=== PATIENT | female | born 1935 | race Caucasian/White ===

== ENCOUNTER 2020-10-05 14:03 | Inpatient (IN) ==
[2020-10-05] MEDS: DilTIAZem CD (24hr) 120 MG CAP.ER.24H PO SCH (22:14)
[2020-10-05] MEDS: Apixaban 5 MG TABLET PO SCH (22:14)
[2020-10-05] MEDS: *HR* OxyCODONE/APAP 5/325 TABLET PO PRN (22:18)
[2020-10-06 06:00] LABS: Basophils # 0.1 K/mcL (0.0-0.2); Basophils % 0.9 %; Eosinophils # 0.2 K/mcL (0.0-0.6); Eosinophils % 1.7 %; Hematocrit 24.4 % (35.3-44.9); Hemoglobin 7.8 g/dL (11.5-15.4); Immature Granulocytes % 1.9 % (0-4); Lymphocytes # 2.7 K/mcL (0.6-4.6); Lymphocytes % 26.9 %; Mean Corpuscular Hemoglobin 28.9 pg (28.0-33.3); Mean Corpuscular Volume 90.4 fL (83.0-100.0); Mean Platelet Volume 13.7 fL (9.4-12.4); Monocytes # 0.9 K/mcL (0.0-1.3); Monocytes % 9.3 %; Platelet Count 113 K/mcL (140-400); Red Cell Distribution Width 13.4 % (11.5-14.5); Segmented Neutrophils % 59.3 %; White Blood Count 10.1 K/mcL (4.3-11.1)
[2020-10-06 06:21] LABS: BUN/Creatinine Ratio 27 (6-26); Blood Urea Nitrogen 20 mg/dL (8-23); Calcium 8.5 mg/dL (8.6-10.3); Carbon Dioxide 27 mEq/L (23-29); Chloride 102 mEq/L (98-107); Glucose 83 mg/dL (70-105); Osmolality,Calculated 288 (280-300); Potassium 4.6 mEq/L (3.5-5.1); Sodium 138 mEq/L (136-145); eGFR For African Americans > 60 (> 60); eGFR For Non-African Americans > 60 (> 60)
[2020-10-06] MEDS: Sennosides/Docusate Sodium TABLET PO SCH ×2 (09:00→21:33)
[2020-10-06] MEDS: Cholecalciferol (D-3) 1,000 UNIT (25MCG) TABLET PO SCH (09:00)
[2020-10-06] MEDS: DilTIAZem CD (24hr) 120 MG CAP.ER.24H PO SCH ×2 (09:00→21:33)
[2020-10-06] MEDS: Apixaban 5 MG TABLET PO SCH (09:01)
[2020-10-06] MEDS: Fluticasone Propionate Nasal 50 MCG/SPRAY BOTTLE NS SCH (09:02)
[2020-10-06] MEDS: *HR* OxyCODONE/APAP 5/325 TABLET PO PRN ×2 (12:07→18:07)
[2020-10-06] MEDS ORDERED: MOM Conc 10 ML UD.LIQ PO PRN (17:40)
[2020-10-07] MEDS: *HR* OxyCODONE/APAP 5/325 TABLET PO PRN ×4 (01:37→21:36)
[2020-10-07] MEDS ORDERED: Melatonin 3 MG TABLET PO ONE (01:50)
[2020-10-07 07:59] LABS: Basophils # 0.1 K/mcL (0.0-0.2); Basophils % 0.6 %; Eosinophils # 0.3 K/mcL (0.0-0.6); Eosinophils % 2.6 %; Hematocrit 23.9 % (35.3-44.9); Hemoglobin 7.7 g/dL (11.5-15.4); Immature Granulocytes % 1.3 % (0-4); Lymphocytes # 2.9 K/mcL (0.6-4.6); Lymphocytes % 28.3 %; Mean Corpuscular HGB Conc 32.2 g/dL (31.6-35.5); Mean Corpuscular Hemoglobin 29.3 pg (28.0-33.3); Mean Corpuscular Volume 90.9 fL (83.0-100.0); Mean Platelet Volume 12.9 fL (9.4-12.4); Monocytes # 0.9 K/mcL (0.0-1.3); Monocytes % 9.1 %; Platelet Count 131 K/mcL (140-400); Red Blood Count 2.63 M/mcL (3.82-4.97); Red Cell Distribution Width 13.5 % (11.5-14.5); Segmented Neutrophils % 58.1 %; White Blood Count 10.3 K/mcL (4.3-11.1)
[2020-10-07 08:11] LABS: Alanine Aminotransferase 10 Units/L (7-52); Albumin 3.1 g/dL (3.5-5.7); Albumin/Globulin Ratio 1.6 (1.1-2.2); Alkaline Phosphatase 58 Units/L (34-104); Aspartate Amino Transferase 16 Units/L (13-39); BUN/Creatinine Ratio 22 (6-26); Bilirubin,Total 0.7 mg/dL (0.3-1.0); Blood Urea Nitrogen 19 mg/dL (8-23); Calcium 8.3 mg/dL (8.6-10.3); Carbon Dioxide 30 mEq/L (23-29); Chloride 103 mEq/L (98-107); Glucose 85 mg/dL (70-105); Osmolality,Calculated 290 (280-300); Potassium 4.4 mEq/L (3.5-5.1); Sodium 139 mEq/L (136-145); Total Protein 5.1 g/dL (6.4-8.9); eGFR For African Americans > 60 (> 60); eGFR For Non-African Americans > 60 (> 60)
[2020-10-07] MEDS: Sennosides/Docusate Sodium TABLET PO SCH ×2 (09:00→20:42)
[2020-10-07] MEDS: DilTIAZem CD (24hr) 120 MG CAP.ER.24H PO SCH ×2 (09:00→20:42)
[2020-10-07] MEDS: Cholecalciferol (D-3) 1,000 UNIT (25MCG) TABLET PO SCH (09:00)
[2020-10-07] MEDS: Fluticasone Propionate Nasal 50 MCG/SPRAY BOTTLE NS SCH (09:01)
[2020-10-07] MEDS: Melatonin 3 MG TABLET PO PRN (21:36)
[2020-10-08] MEDS: Sennosides/Docusate Sodium TABLET PO SCH ×2 (08:00→22:13)
[2020-10-08] MEDS: DilTIAZem CD (24hr) 120 MG CAP.ER.24H PO SCH ×2 (08:01→22:13)
[2020-10-08] MEDS: Fluticasone Propionate Nasal 50 MCG/SPRAY BOTTLE NS SCH (08:01)
[2020-10-08] MEDS: Cholecalciferol (D-3) 1,000 UNIT (25MCG) TABLET PO SCH (08:01)
[2020-10-08] MEDS: *HR* OxyCODONE/APAP 5/325 TABLET PO PRN ×2 (16:27→22:20)
[2020-10-08] MEDS: Melatonin 3 MG TABLET PO PRN (22:14)
[2020-10-09 02:07] LABS: Bilirubin,Urine Negative (Negative); Blood,Urine Negative (Negative); Clarity,Urine Clear (Clear); Color,Urine Yellow (Yellow); Glucose,Urine (UA) Normal (Normal); Ketones,Urine Negative (Negative); Leukocyte Esterase,Urine Negative (Negative); Nitrite,Urine Negative (Negative); PH,Urine 7.5 pH Units (5.0-8.0); Protein,Urine Negative (Neg-Trace); Urobilinogen,Urine Normal (Normal)
[2020-10-09 06:01] LABS: Basophils # 0.1 K/mcL (0.0-0.2); Basophils % 0.6 %; Eosinophils # 0.3 K/mcL (0.0-0.6); Hematocrit 26.6 % (35.3-44.9); Hemoglobin 8.4 g/dL (11.5-15.4); Immature Granulocytes % 0.9 % (0-4); Lymphocytes # 3.9 K/mcL (0.6-4.6); Lymphocytes % 30.7 %; Mean Corpuscular HGB Conc 31.6 g/dL (31.6-35.5); Mean Corpuscular Hemoglobin 28.7 pg (28.0-33.3); Mean Corpuscular Volume 90.8 fL (83.0-100.0); Mean Platelet Volume 12.3 fL (9.4-12.4); Monocytes % 7.9 %; Neutrophils # 7.4 K/mcL (1.6-8.9); Platelet Count 187 K/mcL (140-400); Red Blood Count 2.93 M/mcL (3.82-4.97); Red Cell Distribution Width 13.9 % (11.5-14.5); Segmented Neutrophils % 57.9 %; White Blood Count 12.8 K/mcL (4.3-11.1)
[2020-10-09 06:32] LABS: Calcium 8.4 mg/dL (8.6-10.3); Potassium 4.3 mEq/L (3.5-5.1)
[2020-10-09] MEDS: Megestrol Acetate 400 MG/10 ML UDC PO SCH (08:19)
[2020-10-09] MEDS: Cholecalciferol (D-3) 1,000 UNIT (25MCG) TABLET PO SCH (08:20)
[2020-10-09] MEDS: DilTIAZem CD (24hr) 120 MG CAP.ER.24H PO SCH ×2 (08:20→21:33)
[2020-10-09] MEDS: Sennosides/Docusate Sodium TABLET PO SCH ×2 (08:20→21:32)
[2020-10-09] MEDS: *HR* OxyCODONE/APAP 5/325 TABLET PO PRN ×3 (08:25→21:37)
[2020-10-09] MEDS: Fluticasone Propionate Nasal 50 MCG/SPRAY BOTTLE NS SCH (08:25)
[2020-10-09] MEDS: Melatonin 3 MG TABLET PO PRN (21:32)
[2020-10-10] MEDS: Sennosides/Docusate Sodium TABLET PO SCH ×2 (08:11→21:36)
[2020-10-10] MEDS: DilTIAZem CD (24hr) 120 MG CAP.ER.24H PO SCH ×2 (08:11→21:38)
[2020-10-10] MEDS: Fluticasone Propionate Nasal 50 MCG/SPRAY BOTTLE NS SCH (08:11)
[2020-10-10] MEDS: Cholecalciferol (D-3) 1,000 UNIT (25MCG) TABLET PO SCH (08:11)
[2020-10-10] MEDS: *HR* OxyCODONE/APAP 5/325 TABLET PO PRN ×2 (08:12→17:31)
[2020-10-10] MEDS: Megestrol Acetate 400 MG/10 ML UDC PO SCH (08:12)
[2020-10-10] MEDS: Melatonin 3 MG TABLET PO PRN (21:37)
[2020-10-11] MEDS: *HR* OxyCODONE/APAP 5/325 TABLET PO PRN ×4 (02:37→21:12)
[2020-10-11] MEDS: Cholecalciferol (D-3) 1,000 UNIT (25MCG) TABLET PO SCH (09:48)
[2020-10-11] MEDS: Megestrol Acetate 400 MG/10 ML UDC PO SCH (09:48)
[2020-10-11] MEDS: Sennosides/Docusate Sodium TABLET PO SCH ×2 (09:48→21:12)
[2020-10-11] MEDS: DilTIAZem CD (24hr) 120 MG CAP.ER.24H PO SCH ×2 (09:48→21:15)
[2020-10-11] MEDS: Fluticasone Propionate Nasal 50 MCG/SPRAY BOTTLE NS SCH (09:51)
[2020-10-11] MEDS: Melatonin 3 MG TABLET PO PRN (21:14)
[2020-10-12] MEDS: DilTIAZem CD (24hr) 120 MG CAP.ER.24H PO SCH ×2 (08:04→20:30)
[2020-10-12] MEDS: Megestrol Acetate 400 MG/10 ML UDC PO SCH (08:05)
[2020-10-12] MEDS: *HR* OxyCODONE/APAP 5/325 TABLET PO PRN ×2 (08:05→20:30)
[2020-10-12] MEDS: Sennosides/Docusate Sodium TABLET PO SCH ×2 (08:05→20:31)
[2020-10-12] MEDS: Cholecalciferol (D-3) 1,000 UNIT (25MCG) TABLET PO SCH (08:05)
[2020-10-12] MEDS: Fluticasone Propionate Nasal 50 MCG/SPRAY BOTTLE NS SCH (08:10)
[2020-10-12] MEDS: Melatonin 3 MG TABLET PO PRN (20:30)
[2020-10-13] MEDS: Megestrol Acetate 400 MG/10 ML UDC PO SCH (08:08)
[2020-10-13] MEDS: Fluticasone Propionate Nasal 50 MCG/SPRAY BOTTLE NS SCH (08:08)
[2020-10-13] MEDS: DilTIAZem CD (24hr) 120 MG CAP.ER.24H PO SCH ×2 (08:09→20:50)
[2020-10-13] MEDS: Sennosides/Docusate Sodium TABLET PO SCH ×2 (08:09→20:51)
[2020-10-13] MEDS: Cholecalciferol (D-3) 1,000 UNIT (25MCG) TABLET PO SCH (08:09)
[2020-10-13] MEDS: *HR* OxyCODONE/APAP 5/325 TABLET PO PRN ×2 (08:15→20:51)
[2020-10-13] MEDS: Melatonin 3 MG TABLET PO PRN (20:52)
[2020-10-14] MEDS: DilTIAZem CD (24hr) 120 MG CAP.ER.24H PO SCH ×2 (07:41→20:44)
[2020-10-14] MEDS: Megestrol Acetate 400 MG/10 ML UDC PO SCH (07:41)
[2020-10-14] MEDS: Sennosides/Docusate Sodium TABLET PO SCH ×2 (07:42→20:44)
[2020-10-14] MEDS: *HR* OxyCODONE/APAP 5/325 TABLET PO PRN ×2 (07:42→16:34)
[2020-10-14] MEDS: Fluticasone Propionate Nasal 50 MCG/SPRAY BOTTLE NS SCH (07:42)
[2020-10-14] MEDS: Cholecalciferol (D-3) 1,000 UNIT (25MCG) TABLET PO SCH (07:42)
[2020-10-14 07:43] LABS: Basophils # 0.1 K/mcL (0.0-0.2); Basophils % 0.4 %; Eosinophils # 0.2 K/mcL (0.0-0.6); Eosinophils % 1.7 %; Hematocrit 27.6 % (35.3-44.9); Hemoglobin 8.8 g/dL (11.5-15.4); Immature Granulocytes % 0.7 % (0-4); Lymphocytes # 3.4 K/mcL (0.6-4.6); Lymphocytes % 30.1 %; Mean Corpuscular HGB Conc 31.9 g/dL (31.6-35.5); Mean Corpuscular Hemoglobin 29.1 pg (28.0-33.3); Mean Corpuscular Volume 91.4 fL (83.0-100.0); Mean Platelet Volume 10.6 fL (9.4-12.4); Monocytes # 0.9 K/mcL (0.0-1.3); Monocytes % 7.7 %; Neutrophils # 6.8 K/mcL (1.6-8.9); Platelet Count 257 K/mcL (140-400); Red Blood Count 3.02 M/mcL (3.82-4.97); Red Cell Distribution Width 14.4 % (11.5-14.5); Segmented Neutrophils % 59.4 %; White Blood Count 11.4 K/mcL (4.3-11.1)
[2020-10-14 08:08] LABS: Calcium 8.6 mg/dL (8.6-10.3); Potassium 4.5 mEq/L (3.5-5.1)
[2020-10-14 19:34] VITALS: TEMP 98.3
[2020-10-14] MEDS: Melatonin 3 MG TABLET PO PRN (20:44)
[2020-10-15] MEDS: *HR* OxyCODONE/APAP 5/325 TABLET PO PRN ×3 (04:00→18:46)
[2020-10-15 07:25] VITALS: BP 152/70; PULSE 78; RESP 16; O2SAT 94
[2020-10-15] MEDS: Megestrol Acetate 400 MG/10 ML UDC PO SCH (09:09)
[2020-10-15] MEDS: DilTIAZem CD (24hr) 120 MG CAP.ER.24H PO SCH (09:09)
[2020-10-15] MEDS: Sennosides/Docusate Sodium TABLET PO SCH (09:10)
[2020-10-15] MEDS: Cholecalciferol (D-3) 1,000 UNIT (25MCG) TABLET PO SCH (09:10)
[2020-10-15] MEDS: Fluticasone Propionate Nasal 50 MCG/SPRAY BOTTLE NS SCH (09:14)
== END 2020-10-15 19:06 | disposition home or self-care (01) | DRG 560 ==
LOC: INPPIK 17:34
PROVIDERS: ADMIT Family Medicine; ATTEND Family Medicine

== ENCOUNTER 2020-12-10 18:47 | Inpatient (IN) ==
[2020-12-12] MEDS: DilTIAZem CD (24hr) 120 MG CAP.ER.24H PO SCH ×3 (00:42→21:23)
[2020-12-12 06:40] LABS: Basophils # 0.1 K/mcL (0.0-0.2); Basophils % 0.8 %; Eosinophils # 0.3 K/mcL (0.0-0.6); Eosinophils % 3.6 %; Hematocrit 32.3 % (35.3-44.9); Hemoglobin 10.4 g/dL (11.5-15.4); Lymphocytes # 3.2 K/mcL (0.6-4.6); Lymphocytes % 33.6 %; Mean Corpuscular HGB Conc 32.2 g/dL (31.6-35.5); Mean Corpuscular Hemoglobin 28.8 pg (28.0-33.3); Mean Corpuscular Volume 89.5 fL (83.0-100.0); Mean Platelet Volume 12.2 fL (9.4-12.4); Monocytes # 1.1 K/mcL (0.0-1.3); Monocytes % 11.7 %; Neutrophils # 4.7 K/mcL (1.6-8.9); Platelet Count 162 K/mcL (140-400); Red Blood Count 3.61 M/mcL (3.82-4.97); Red Cell Distribution Width 16.3 % (11.5-14.5); Segmented Neutrophils % 49.3 %; White Blood Count 9.4 K/mcL (4.3-11.1)
[2020-12-12 07:06] LABS: Calcium 8.7 mg/dL (8.6-10.3); Magnesium 1.5 mg/dL (1.6-2.6); Phosphorous 3.7 mg/dL (2.7-4.5); Potassium 3.5 mEq/L (3.5-5.1)
[2020-12-12] MEDS: Multivit/Ca/Min/Fe/FA 1 TAB TABLET PO SCH (11:39)
[2020-12-12] MEDS: amLODIPine 5 MG TABLET PO SCH (11:40)
[2020-12-12] MEDS ORDERED: Acetaminophen 325 MG TABLET PO PRN (16:44)
[2020-12-12] MEDS: 0.9 % Sodium Chloride 1,000 ML IVC SCH (21:24)
[2020-12-12] MEDS: Budesonide/Formoterol 80/4.5 1 PUFF INH IH SCH (21:57)
[2020-12-13] MEDS: amLODIPine 5 MG TABLET PO SCH (08:37)
[2020-12-13] MEDS: DilTIAZem CD (24hr) 120 MG CAP.ER.24H PO SCH ×2 (08:38→20:35)
[2020-12-13] MEDS: Multivit/Ca/Min/Fe/FA 1 TAB TABLET PO SCH (08:38)
[2020-12-13] MEDS: Budesonide/Formoterol 80/4.5 1 PUFF INH IH SCH ×2 (09:34→21:32)
[2020-12-13 10:18] LABS: Calcium 9.1 mg/dL (8.6-10.3); Magnesium 1.4 mg/dL (1.6-2.6); Potassium 3.5 mEq/L (3.5-5.1)
[2020-12-13] MEDS: 0.9 % Sodium Chloride 1,000 ML IVC SCH (20:38)
[2020-12-14] MEDS: amLODIPine 5 MG TABLET PO SCH (08:16)
[2020-12-14] MEDS: Multivit/Ca/Min/Fe/FA 1 TAB TABLET PO SCH (08:16)
[2020-12-14] MEDS: DilTIAZem CD (24hr) 120 MG CAP.ER.24H PO SCH (08:17)
[2020-12-14 08:37] VITALS: BP 136/76; PULSE 98; TEMP 97.6
[2020-12-14] MEDS: Budesonide/Formoterol 80/4.5 1 PUFF INH IH SCH (09:44)
[2020-12-14 09:48] VITALS: RESP 18; O2SAT 98
[2020-12-14] MEDS: 0.9 % Sodium Chloride 1,000 ML IVC SCH (10:27)
== END 2020-12-14 14:08 | disposition home health service (06) | DRG 949 ==
LOC: INPPIK 12-11 20:09
PROVIDERS: ADMIT Internal Medicine; ATTEND Internal Medicine

== ENCOUNTER 2021-01-01 17:55 | Inpatient (IN) ==
[2021-01-12] MEDS ORDERED: NON-FORMULARY MEDICATION 1 EACH EACH (Calcium Carbonate/Vitamin D3 [Calcium 600 + Vit D Ta PO SCH (09:00)
[2021-01-12] MEDS: Cholestyramine 4 GM POWD.PACK PO SCH ×3 (21:08→22:29)
[2021-01-12] MEDS: DilTIAZem CD (24hr) 120 MG CAP.ER.24H PO SCH ×3 (22:27→22:39)
[2021-01-12] MEDS: amLODIPine 5 MG TABLET PO SCH (22:28)
[2021-01-12] MEDS: Vancomycin Oral Soln 125 MG/2.5 ML UDC PO SCH (22:39)
[2021-01-13] MEDS: Neosporin OINT 1 APPL PACKET TP SCH ×3 (00:39→17:29)
[2021-01-13] MEDS: Multivit/Ca/Min/Fe/FA 1 TAB TABLET PO SCH (09:44)
[2021-01-13] MEDS: Cholestyramine 4 GM POWD.PACK PO SCH ×2 (09:44→17:29)
[2021-01-13] MEDS: amLODIPine 5 MG TABLET PO SCH (09:44)
[2021-01-13] MEDS: DilTIAZem CD (24hr) 120 MG CAP.ER.24H PO SCH ×2 (09:44→22:12)
[2021-01-13] MEDS: Cholecalciferol (D-3) 1,000 UNIT (25MCG) TABLET PO SCH (09:45)
[2021-01-13] MEDS: Vancomycin Oral Soln 125 MG/2.5 ML UDC PO SCH ×4 (09:49→22:12)
[2021-01-14] MEDS: Neosporin OINT 1 APPL PACKET TP SCH ×4 (00:53→23:54)
[2021-01-14 06:58] LABS: Basophils # 0.1 K/mcL (0.0-0.2); Basophils % 0.8 %; Eosinophils # 0.5 K/mcL (0.0-0.6); Eosinophils % 5.1 %; Hematocrit 31.9 % (35.3-44.9); Hemoglobin 10.5 g/dL (11.5-15.4); Immature Granulocytes % 0.8 % (0-4); Lymphocytes # 4.2 K/mcL (0.6-4.6); Lymphocytes % 39.2 %; Mean Corpuscular HGB Conc 32.9 g/dL (31.6-35.5); Mean Corpuscular Hemoglobin 27.9 pg (28.0-33.3); Mean Corpuscular Volume 84.8 fL (83.0-100.0); Mean Platelet Volume 11.9 fL (9.4-12.4); Monocytes # 1.1 K/mcL (0.0-1.3); Monocytes % 10.7 %; Neutrophils # 4.6 K/mcL (1.6-8.9); Platelet Count 217 K/mcL (140-400); Red Blood Count 3.76 M/mcL (3.82-4.97); Red Cell Distribution Width 16.2 % (11.5-14.5); Segmented Neutrophils % 43.4 %; White Blood Count 10.6 K/mcL (4.3-11.1)
[2021-01-14 07:25] LABS: Calcium 9.1 mg/dL (8.6-10.3); Magnesium 1.6 mg/dL (1.6-2.6); Potassium 4.2 mEq/L (3.5-5.1)
[2021-01-14] MEDS: Cholecalciferol (D-3) 1,000 UNIT (25MCG) TABLET PO SCH (08:44)
[2021-01-14] MEDS: amLODIPine 5 MG TABLET PO SCH (08:44)
[2021-01-14] MEDS: Multivit/Ca/Min/Fe/FA 1 TAB TABLET PO SCH (08:44)
[2021-01-14] MEDS: Cholestyramine 4 GM POWD.PACK PO SCH ×2 (08:44→16:10)
[2021-01-14] MEDS: DilTIAZem CD (24hr) 120 MG CAP.ER.24H PO SCH ×2 (08:44→21:25)
[2021-01-14] MEDS: Vancomycin Oral Soln 125 MG/2.5 ML UDC PO SCH ×4 (08:45→21:26)
[2021-01-14] MEDS ORDERED: Patient Taking Own Medication 1 EACH VG SCH (09:00)
[2021-01-14] MEDS: Ondansetron ODT 4 MG TAB.RAPDIS SL PRN ×2 (09:15→18:14)
[2021-01-14] MEDS: Acetaminophen 325 MG TABLET PO PRN ×2 (09:15→21:25)
[2021-01-14] MEDS: Estrogens, Conjugated CREAM 30 GM TUBE VG SCH (21:26)
[2021-01-14] MEDS ORDERED: Melatonin 3 MG TABLET PO PRN (23:49)
[2021-01-15] MEDS: Cholestyramine 4 GM POWD.PACK PO SCH ×2 (05:55→17:09)
[2021-01-15] MEDS: Cholecalciferol (D-3) 1,000 UNIT (25MCG) TABLET PO SCH (08:56)
[2021-01-15] MEDS: Multivit/Ca/Min/Fe/FA 1 TAB TABLET PO SCH (08:56)
[2021-01-15] MEDS: amLODIPine 5 MG TABLET PO SCH (08:56)
[2021-01-15] MEDS: DilTIAZem CD (24hr) 120 MG CAP.ER.24H PO SCH ×2 (08:56→21:50)
[2021-01-15] MEDS: Neosporin OINT 1 APPL PACKET TP SCH ×2 (08:56→17:09)
[2021-01-15] MEDS: Vancomycin Oral Soln 125 MG/2.5 ML UDC PO SCH ×4 (08:57→21:50)
[2021-01-15] MEDS ORDERED: Fluconazole 100 MG TABLET PO ONE (12:00)
[2021-01-15] MEDS: Ondansetron ODT 4 MG TAB.RAPDIS SL PRN (17:17)
[2021-01-15] MEDS: Acetaminophen 325 MG TABLET PO PRN (21:49)
[2021-01-15] MEDS: Melatonin 3 MG TABLET PO PRN (21:49)
[2021-01-15] MEDS: Estrogens, Conjugated CREAM 30 GM TUBE VG SCH (21:50)
[2021-01-16] MEDS: Neosporin OINT 1 APPL PACKET TP SCH ×4 (00:28→23:52)
[2021-01-16] MEDS: Acetaminophen 325 MG TABLET PO PRN ×2 (03:25→17:55)
[2021-01-16] MEDS: DilTIAZem CD (24hr) 120 MG CAP.ER.24H PO SCH ×2 (08:31→21:13)
[2021-01-16] MEDS: Cholestyramine 4 GM POWD.PACK PO SCH ×3 (08:31→15:00)
[2021-01-16] MEDS: Multivit/Ca/Min/Fe/FA 1 TAB TABLET PO SCH (08:31)
[2021-01-16] MEDS: amLODIPine 5 MG TABLET PO SCH (08:31)
[2021-01-16] MEDS: Vancomycin Oral Soln 125 MG/2.5 ML UDC PO SCH ×4 (08:32→21:13)
[2021-01-16] MEDS: Cholecalciferol (D-3) 1,000 UNIT (25MCG) TABLET PO SCH (08:32)
[2021-01-16] MEDS ORDERED: Fluconazole 100 MG TABLET PO ONE (09:00)
[2021-01-16] MEDS: Melatonin 3 MG TABLET PO PRN (21:17)
[2021-01-16] MEDS: Estrogens, Conjugated CREAM 30 GM TUBE VG SCH (21:17)
[2021-01-16] MEDS ORDERED: *HR* LORazepam 1 MG TABLET PO ONE (23:43)
[2021-01-17] MEDS: Cholestyramine 4 GM POWD.PACK PO SCH (07:45)
[2021-01-17] MEDS: Multivit/Ca/Min/Fe/FA 1 TAB TABLET PO SCH (08:57)
[2021-01-17] MEDS: DilTIAZem CD (24hr) 120 MG CAP.ER.24H PO SCH ×2 (08:57→20:45)
[2021-01-17] MEDS: amLODIPine 5 MG TABLET PO SCH (08:57)
[2021-01-17] MEDS: Cholecalciferol (D-3) 1,000 UNIT (25MCG) TABLET PO SCH (08:57)
[2021-01-17] MEDS: Neosporin OINT 1 APPL PACKET TP SCH ×2 (08:57→15:20)
[2021-01-17] MEDS: Vancomycin Oral Soln 125 MG/2.5 ML UDC PO SCH ×4 (09:00→20:45)
[2021-01-17] MEDS: Melatonin 3 MG TABLET PO PRN (20:45)
[2021-01-17] MEDS: Estrogens, Conjugated CREAM 30 GM TUBE VG SCH (20:48)
[2021-01-18] MEDS: Neosporin OINT 1 APPL PACKET TP SCH ×2 (00:11→08:37)
[2021-01-18] MEDS: traZODone 50 MG TABLET PO PRN ×2 (02:39→21:50)
[2021-01-18] MEDS: Cholestyramine 4 GM POWD.PACK PO SCH ×2 (07:51→16:49)
[2021-01-18 08:14] LABS: White Blood Count 11.2 K/mcL (4.3-11.1)
[2021-01-18 08:15] LABS: Basophils # 0.1 K/mcL (0.0-0.2); Basophils % 0.8 %; Eosinophils # 0.5 K/mcL (0.0-0.6); Eosinophils % 4.3 %; Hematocrit 31.5 % (35.3-44.9); Immature Granulocytes % 0.5 % (0-4); Lymphocytes # 3.4 K/mcL (0.6-4.6); Lymphocytes % 30.2 %; Mean Corpuscular HGB Conc 31.7 g/dL (31.6-35.5); Mean Corpuscular Hemoglobin 27.5 pg (28.0-33.3); Mean Corpuscular Volume 86.5 fL (83.0-100.0); Mean Platelet Volume 10.9 fL (9.4-12.4); Monocytes # 0.9 K/mcL (0.0-1.3); Monocytes % 7.9 %; Neutrophils # 6.3 K/mcL (1.6-8.9); Platelet Count 394 K/mcL (140-400); Red Blood Count 3.64 M/mcL (3.82-4.97); Red Cell Distribution Width 16.5 % (11.5-14.5); Segmented Neutrophils % 56.3 %
[2021-01-18 08:27] LABS: Calcium 9.2 mg/dL (8.6-10.3)
[2021-01-18] MEDS: DilTIAZem CD (24hr) 120 MG CAP.ER.24H PO SCH ×2 (08:37→21:51)
[2021-01-18] MEDS: amLODIPine 5 MG TABLET PO SCH (08:37)
[2021-01-18] MEDS: Multivit/Ca/Min/Fe/FA 1 TAB TABLET PO SCH (08:38)
[2021-01-18] MEDS: Cholecalciferol (D-3) 1,000 UNIT (25MCG) TABLET PO SCH (08:38)
[2021-01-18] MEDS: Vancomycin Oral Soln 125 MG/2.5 ML UDC PO SCH ×4 (08:38→21:53)
[2021-01-18] MEDS: Melatonin 3 MG TABLET PO PRN (21:49)
[2021-01-18] MEDS: Ondansetron ODT 4 MG TAB.RAPDIS SL PRN (21:50)
[2021-01-18] MEDS: Acetaminophen 325 MG TABLET PO PRN (22:44)
[2021-01-18] MEDS: Estrogens, Conjugated CREAM 30 GM TUBE VG SCH (22:48)
[2021-01-19] MEDS: Acetaminophen 325 MG TABLET PO PRN ×2 (04:40→20:31)
[2021-01-19] MEDS: Cholestyramine 4 GM POWD.PACK PO SCH ×2 (09:36→15:58)
[2021-01-19] MEDS: Multivit/Ca/Min/Fe/FA 1 TAB TABLET PO SCH (09:42)
[2021-01-19] MEDS: DilTIAZem CD (24hr) 120 MG CAP.ER.24H PO SCH ×2 (09:42→20:19)
[2021-01-19] MEDS: amLODIPine 5 MG TABLET PO SCH (09:42)
[2021-01-19] MEDS: Cholecalciferol (D-3) 1,000 UNIT (25MCG) TABLET PO SCH (09:42)
[2021-01-19] MEDS: Vancomycin Oral Soln 125 MG/2.5 ML UDC PO SCH ×4 (10:31→20:19)
[2021-01-19] MEDS: Estrogens, Conjugated CREAM 30 GM TUBE VG SCH (20:19)
[2021-01-20] MEDS: traZODone 50 MG TABLET PO PRN ×2 (00:25→19:48)
[2021-01-20 08:35] LABS: Calcium 9.1 mg/dL (8.6-10.3); Potassium 3.9 mEq/L (3.5-5.1)
[2021-01-20] MEDS: amLODIPine 5 MG TABLET PO SCH (09:00)
[2021-01-20] MEDS: Cholecalciferol (D-3) 1,000 UNIT (25MCG) TABLET PO SCH (09:00)
[2021-01-20] MEDS: Cholestyramine 4 GM POWD.PACK PO SCH ×2 (09:00→17:04)
[2021-01-20] MEDS: DilTIAZem CD (24hr) 120 MG CAP.ER.24H PO SCH ×2 (09:00→19:49)
[2021-01-20] MEDS: Multivit/Ca/Min/Fe/FA 1 TAB TABLET PO SCH (09:00)
[2021-01-20] MEDS: Vancomycin Oral Soln 125 MG/2.5 ML UDC PO SCH ×4 (09:06→19:49)
[2021-01-20] MEDS: Melatonin 3 MG TABLET PO PRN (19:48)
[2021-01-20] MEDS: Estrogens, Conjugated CREAM 30 GM TUBE VG SCH (19:49)
[2021-01-21] MEDS: Acetaminophen 325 MG TABLET PO PRN ×2 (06:05→21:16)
[2021-01-21 07:25] LABS: Basophils # 0.1 K/mcL (0.0-0.2); Basophils % 0.9 %; Eosinophils # 0.3 K/mcL (0.0-0.6); Eosinophils % 3.3 %; Hematocrit 32.9 % (35.3-44.9); Hemoglobin 10.8 g/dL (11.5-15.4); Immature Granulocytes % 0.4 % (0-4); Lymphocytes # 2.9 K/mcL (0.6-4.6); Lymphocytes % 32.8 %; Mean Corpuscular HGB Conc 32.8 g/dL (31.6-35.5); Mean Corpuscular Hemoglobin 27.6 pg (28.0-33.3); Mean Corpuscular Volume 84.1 fL (83.0-100.0); Mean Platelet Volume 9.4 fL (9.4-12.4); Monocytes # 1.2 K/mcL (0.0-1.3); Monocytes % 13.6 %; Neutrophils # 4.4 K/mcL (1.6-8.9); Platelet Count 442 K/mcL (140-400); Red Blood Count 3.91 M/mcL (3.82-4.97); Red Cell Distribution Width 16.5 % (11.5-14.5); White Blood Count 8.9 K/mcL (4.3-11.1)
[2021-01-21] MEDS: Cholestyramine 4 GM POWD.PACK PO SCH ×2 (07:58→15:58)
[2021-01-21] MEDS: DilTIAZem CD (24hr) 120 MG CAP.ER.24H PO SCH ×2 (08:03→21:16)
[2021-01-21] MEDS: amLODIPine 5 MG TABLET PO SCH (08:03)
[2021-01-21] MEDS: Cholecalciferol (D-3) 1,000 UNIT (25MCG) TABLET PO SCH (08:03)
[2021-01-21] MEDS: Multivit/Ca/Min/Fe/FA 1 TAB TABLET PO SCH (08:03)
[2021-01-21] MEDS: Vancomycin Oral Soln 125 MG/2.5 ML UDC PO SCH ×4 (08:06→21:47)
[2021-01-21] MEDS: Estrogens, Conjugated CREAM 30 GM TUBE VG SCH (21:16)
[2021-01-21] MEDS: Melatonin 3 MG TABLET PO PRN (21:16)
[2021-01-22] MEDS: Cholestyramine 4 GM POWD.PACK PO SCH ×2 (06:15→17:27)
[2021-01-22 08:55] LABS: Calcium 8.8 mg/dL (8.6-10.3); Potassium 3.5 mEq/L (3.5-5.1)
[2021-01-22] MEDS: Cholecalciferol (D-3) 1,000 UNIT (25MCG) TABLET PO SCH (09:39)
[2021-01-22] MEDS: amLODIPine 5 MG TABLET PO SCH (09:39)
[2021-01-22] MEDS: Vancomycin Oral Soln 125 MG/2.5 ML UDC PO SCH ×4 (09:39→21:18)
[2021-01-22] MEDS: Multivit/Ca/Min/Fe/FA 1 TAB TABLET PO SCH (09:39)
[2021-01-22] MEDS: DilTIAZem CD (24hr) 120 MG CAP.ER.24H PO SCH ×2 (09:39→21:18)
[2021-01-22] MEDS: Ondansetron ODT 4 MG TAB.RAPDIS SL PRN (11:47)
[2021-01-22] MEDS: Acetaminophen 325 MG TABLET PO PRN ×2 (11:56→21:18)
[2021-01-22] MEDS: Melatonin 3 MG TABLET PO PRN (21:18)
[2021-01-22] MEDS: Estrogens, Conjugated CREAM 30 GM TUBE VG SCH (22:22)
[2021-01-23] MEDS: Cholecalciferol (D-3) 1,000 UNIT (25MCG) TABLET PO SCH (08:26)
[2021-01-23] MEDS: DilTIAZem CD (24hr) 120 MG CAP.ER.24H PO SCH ×2 (08:26→20:07)
[2021-01-23] MEDS: Cholestyramine 4 GM POWD.PACK PO SCH ×2 (08:26→17:44)
[2021-01-23] MEDS: Vancomycin Oral Soln 125 MG/2.5 ML UDC PO SCH ×4 (08:26→20:07)
[2021-01-23] MEDS: amLODIPine 5 MG TABLET PO SCH (08:27)
[2021-01-23] MEDS: Multivit/Ca/Min/Fe/FA 1 TAB TABLET PO SCH (08:27)
[2021-01-23] MEDS: Estrogens, Conjugated CREAM 30 GM TUBE VG SCH (20:07)
[2021-01-23] MEDS: Melatonin 3 MG TABLET PO PRN (20:07)
[2021-01-24] MEDS: Acetaminophen 325 MG TABLET PO PRN ×2 (05:58→17:57)
[2021-01-24] MEDS: DilTIAZem CD (24hr) 120 MG CAP.ER.24H PO SCH ×2 (08:24→19:30)
[2021-01-24] MEDS: Multivit/Ca/Min/Fe/FA 1 TAB TABLET PO SCH (08:24)
[2021-01-24] MEDS: Cholestyramine 4 GM POWD.PACK PO SCH ×2 (08:24→16:51)
[2021-01-24] MEDS: Cholecalciferol (D-3) 1,000 UNIT (25MCG) TABLET PO SCH (08:25)
[2021-01-24] MEDS: amLODIPine 5 MG TABLET PO SCH (08:25)
[2021-01-24 10:18] LABS: Basophils # 0.1 K/mcL (0.0-0.2); Basophils % 1.4 %; Eosinophils # 0.5 K/mcL (0.0-0.6); Eosinophils % 4.7 %; Hematocrit 36.9 % (35.3-44.9); Hemoglobin 12.1 g/dL (11.5-15.4); Immature Granulocytes % 0.4 % (0-4); Lymphocytes # 3.8 K/mcL (0.6-4.6); Lymphocytes % 39.8 %; Mean Corpuscular HGB Conc 32.8 g/dL (31.6-35.5); Mean Corpuscular Hemoglobin 27.9 pg (28.0-33.3); Mean Platelet Volume 9.6 fL (9.4-12.4); Monocytes # 1.2 K/mcL (0.0-1.3); Monocytes % 12.1 %; Platelet Count 409 K/mcL (140-400); Red Blood Count 4.34 M/mcL (3.82-4.97); Red Cell Distribution Width 16.6 % (11.5-14.5); Segmented Neutrophils % 41.6 %; White Blood Count 9.5 K/mcL (4.3-11.1)
[2021-01-24 10:31] LABS: Calcium 9.1 mg/dL (8.6-10.3); Magnesium 1.6 mg/dL (1.6-2.6); Potassium 3.5 mEq/L (3.5-5.1)
[2021-01-24] MEDS: Lactobacillus 1 EACH CAP.SPRINK PO SCH (16:55)
[2021-01-24] MEDS: Melatonin 3 MG TABLET PO PRN (19:30)
[2021-01-24] MEDS: Estrogens, Conjugated CREAM 30 GM TUBE VG SCH (19:31)
[2021-01-25] MEDS: Acetaminophen 325 MG TABLET PO PRN ×2 (03:39→21:39)
[2021-01-25] MEDS: Cholestyramine 4 GM POWD.PACK PO SCH ×2 (08:42→16:45)
[2021-01-25] MEDS: Multivit/Ca/Min/Fe/FA 1 TAB TABLET PO SCH (09:36)
[2021-01-25] MEDS: Cholecalciferol (D-3) 1,000 UNIT (25MCG) TABLET PO SCH (09:36)
[2021-01-25] MEDS: amLODIPine 5 MG TABLET PO SCH (09:36)
[2021-01-25] MEDS: Lactobacillus 1 EACH CAP.SPRINK PO SCH (09:37)
[2021-01-25] MEDS: DilTIAZem CD (24hr) 120 MG CAP.ER.24H PO SCH ×2 (09:37→21:39)
[2021-01-25] MEDS: traZODone 50 MG TABLET PO PRN (21:38)
[2021-01-25] MEDS: Melatonin 3 MG TABLET PO PRN (21:38)
[2021-01-25] MEDS: Estrogens, Conjugated CREAM 30 GM TUBE VG SCH (21:39)
[2021-01-25 23:00] LABS: Bilirubin,Urine Negative (Negative); Blood,Urine Moderate (Negative); Clarity,Urine Cloudy (Clear); Color,Urine Yellow (Yellow); Glucose,Urine (UA) Normal (Normal); Ketones,Urine Negative (Negative); Leukocyte Esterase,Urine Moderate (Negative); Nitrite,Urine Negative (Negative); PH,Urine 5.5 pH Units (5.0-8.0); Protein,Urine >=300 mg/dL (Neg-Trace); Specific Gravity,Urine 1.025 (1.010-1.025); Urobilinogen,Urine Normal (Normal)
[2021-01-25 23:07] LABS: Bacteria,Urine Present per hpf (None-Few); RBC,Urine Present per hpf (0-3); Squamous Epithelial Cell,Urine Present per hpf (None-Few); WBC,Urine TNTC per hpf (0-3)
[2021-01-26] MEDS: Cholestyramine 4 GM POWD.PACK PO SCH ×2 (05:46→17:13)
[2021-01-26 07:35] LABS: Basophils # 0.1 K/mcL (0.0-0.2); Basophils % 0.9 %; Eosinophils # 0.4 K/mcL (0.0-0.6); Eosinophils % 4.3 %; Hematocrit 29.4 % (35.3-44.9); Hemoglobin 9.4 g/dL (11.5-15.4); Immature Granulocytes % 0.7 % (0-4); Lymphocytes # 3.6 K/mcL (0.6-4.6); Lymphocytes % 35.6 %; Mean Corpuscular Hemoglobin 27.6 pg (28.0-33.3); Mean Corpuscular Volume 86.2 fL (83.0-100.0); Mean Platelet Volume 9.5 fL (9.4-12.4); Monocytes # 1.4 K/mcL (0.0-1.3); Monocytes % 13.6 %; Neutrophils # 4.5 K/mcL (1.6-8.9); Platelet Count 270 K/mcL (140-400); Red Blood Count 3.41 M/mcL (3.82-4.97); Red Cell Distribution Width 17.2 % (11.5-14.5); Segmented Neutrophils % 44.9 %; White Blood Count 10.1 K/mcL (4.3-11.1)
[2021-01-26] MEDS ORDERED: Diphenoxylate/Atropine 1 TAB TABLET PO ONE (09:27)
[2021-01-26] MEDS: DilTIAZem CD (24hr) 120 MG CAP.ER.24H PO SCH ×2 (09:29→19:52)
[2021-01-26] MEDS: amLODIPine 5 MG TABLET PO SCH (09:29)
[2021-01-26] MEDS: Cholecalciferol (D-3) 1,000 UNIT (25MCG) TABLET PO SCH (09:30)
[2021-01-26] MEDS: Lactobacillus 1 EACH CAP.SPRINK PO SCH (09:30)
[2021-01-26] MEDS: Multivit/Ca/Min/Fe/FA 1 TAB TABLET PO SCH (09:30)
[2021-01-26 11:49] LABS: Calcium 8.9 mg/dL (8.6-10.3); Potassium 3.6 mEq/L (3.5-5.1)
[2021-01-26] MEDS: Melatonin 3 MG TABLET PO PRN (19:52)
[2021-01-26] MEDS: Estrogens, Conjugated CREAM 30 GM TUBE VG SCH (20:03)
[2021-01-27] MEDS: Acetaminophen 325 MG TABLET PO PRN ×3 (00:51→20:08)
[2021-01-27] MEDS: traZODone 50 MG TABLET PO PRN ×2 (00:51→20:08)
[2021-01-27] MEDS: Cholestyramine 4 GM POWD.PACK PO SCH ×2 (07:28→16:37)
[2021-01-27] MEDS: Multivit/Ca/Min/Fe/FA 1 TAB TABLET PO SCH (08:06)
[2021-01-27] MEDS: Lactobacillus 1 EACH CAP.SPRINK PO SCH (08:06)
[2021-01-27] MEDS: Cholecalciferol (D-3) 1,000 UNIT (25MCG) TABLET PO SCH (08:06)
[2021-01-27] MEDS: DilTIAZem CD (24hr) 120 MG CAP.ER.24H PO SCH ×2 (08:06→20:08)
[2021-01-27] MEDS: amLODIPine 5 MG TABLET PO SCH (08:06)
[2021-01-27] MEDS ORDERED: 0.9 % Sodium Chloride 500 ML IV ONE (19:51)
[2021-01-27 21:06] LABS: Albumin 3.1 g/dL (3.5-5.7); Albumin/Globulin Ratio 1.3 (1.1-2.2); Bilirubin,Total 0.4 mg/dL (0.3-1.0); Calcium 8.3 mg/dL (8.6-10.3); Globulin 2.3 g/dL (2.4-3.5); Total Protein 5.4 g/dL (6.4-8.9)
[2021-01-27 21:25] LABS: Basophils # 0.1 K/mcL (0.0-0.2); Basophils % 0.8 %; Eosinophils # 0.2 K/mcL (0.0-0.6); Eosinophils % 1.6 %; Hematocrit 28.5 % (35.3-44.9); Hemoglobin 9.5 g/dL (11.5-15.4); Immature Granulocytes % 0.7 % (0-4); Lymphocytes % 24.8 %; Mean Corpuscular HGB Conc 33.3 g/dL (31.6-35.5); Mean Corpuscular Hemoglobin 27.9 pg (28.0-33.3); Mean Corpuscular Volume 83.6 fL (83.0-100.0); Mean Platelet Volume 9.1 fL (9.4-12.4); Monocytes # 1.1 K/mcL (0.0-1.3); Monocytes % 8.6 %; Platelet Count 166 K/mcL (140-400); Red Blood Count 3.41 M/mcL (3.82-4.97); Red Cell Distribution Width 16.8 % (11.5-14.5); Segmented Neutrophils % 63.5 %; White Blood Count 12.2 K/mcL (4.3-11.1)
[2021-01-27 21:26] LABS: Neutrophils # 7.8 K/mcL (1.6-8.9)
[2021-01-27] MEDS: Estrogens, Conjugated CREAM 30 GM TUBE VG SCH (22:48)
[2021-01-28 00:04] LABS: Bilirubin,Urine Negative (Negative); Blood,Urine Moderate (Negative); Color,Urine Orange (Yellow); Glucose,Urine (UA) 100 mg/dL (Normal); Ketones,Urine Trace mg/dL (Negative); Leukocyte Esterase,Urine Large (Negative); Nitrite,Urine Positive (Negative); Protein,Urine >=300 mg/dL (Neg-Trace); Urobilinogen,Urine Normal (Normal)
[2021-01-28 00:06] LABS: Clarity,Urine Turbid (Clear)
[2021-01-28] MEDS: Cholestyramine 4 GM POWD.PACK PO SCH ×2 (06:36→16:47)
[2021-01-28] MEDS: Acetaminophen 325 MG TABLET PO PRN (06:36)
[2021-01-28] MEDS: Multivit/Ca/Min/Fe/FA 1 TAB TABLET PO SCH (08:46)
[2021-01-28] MEDS: Lactobacillus 1 EACH CAP.SPRINK PO SCH (08:46)
[2021-01-28] MEDS: amLODIPine 5 MG TABLET PO SCH (08:48)
[2021-01-28] MEDS: DilTIAZem CD (24hr) 120 MG CAP.ER.24H PO SCH ×2 (08:49→20:31)
[2021-01-28] MEDS: Cholecalciferol (D-3) 1,000 UNIT (25MCG) TABLET PO SCH (08:49)
[2021-01-28] MEDS: CALCIUM CARBONATE 750 MG PO SCH (08:50)
[2021-01-28] MEDS: Ondansetron ODT 4 MG TAB.RAPDIS SL PRN (09:45)
[2021-01-28] MEDS: Diphenoxylate/Atropine 1 TAB TABLET PO PRN ×2 (16:44→21:33)
[2021-01-28] MEDS: Estrogens, Conjugated CREAM 30 GM TUBE VG SCH (20:37)
[2021-01-28] MEDS: Melatonin 3 MG TABLET PO PRN (21:33)
[2021-01-29] MEDS: Cholestyramine 4 GM POWD.PACK PO SCH ×2 (07:50→16:21)
[2021-01-29] MEDS: Diphenoxylate/Atropine 1 TAB TABLET PO PRN ×2 (08:14→18:06)
[2021-01-29] MEDS: Lactobacillus 1 EACH CAP.SPRINK PO SCH (09:17)
[2021-01-29] MEDS: Multivit/Ca/Min/Fe/FA 1 TAB TABLET PO SCH (09:17)
[2021-01-29] MEDS: Cholecalciferol (D-3) 1,000 UNIT (25MCG) TABLET PO SCH (09:17)
[2021-01-29] MEDS: amLODIPine 5 MG TABLET PO SCH (09:17)
[2021-01-29] MEDS: DilTIAZem CD (24hr) 120 MG CAP.ER.24H PO SCH ×2 (09:17→19:45)
[2021-01-29] MEDS: CALCIUM CARBONATE 750 MG PO SCH (09:54)
[2021-01-29] MEDS: 0.9 % Sodium Chloride 1,000 ML IVC SCH (16:27)
[2021-01-29] MEDS: Acetaminophen 325 MG TABLET PO PRN (18:05)
[2021-01-29] MEDS: Melatonin 3 MG TABLET PO PRN (19:46)
[2021-01-29] MEDS: Estrogens, Conjugated CREAM 30 GM TUBE VG SCH (19:51)
[2021-01-30] MEDS: Diphenoxylate/Atropine 1 TAB TABLET PO PRN ×2 (03:32→20:49)
[2021-01-30] MEDS: traZODone 50 MG TABLET PO PRN ×2 (03:32→20:49)
[2021-01-30] MEDS: 0.9 % Sodium Chloride 1,000 ML IVC SCH ×2 (03:36→17:52)
[2021-01-30 07:56] LABS: Basophils # 0.1 K/mcL (0.0-0.2); Basophils % 0.5 %; Eosinophils # 0.5 K/mcL (0.0-0.6); Eosinophils % 3.7 %; Hematocrit 28.6 % (35.3-44.9); Hemoglobin 9.2 g/dL (11.5-15.4); Immature Granulocytes % 0.7 % (0-4); Lymphocytes # 2.7 K/mcL (0.6-4.6); Lymphocytes % 21.6 %; Mean Corpuscular HGB Conc 32.2 g/dL (31.6-35.5); Mean Corpuscular Hemoglobin 27.9 pg (28.0-33.3); Mean Corpuscular Volume 86.7 fL (83.0-100.0); Mean Platelet Volume 10.4 fL (9.4-12.4); Monocytes # 1.4 K/mcL (0.0-1.3); Monocytes % 10.7 %; Platelet Count 150 K/mcL (140-400); Red Cell Distribution Width 17.2 % (11.5-14.5); Segmented Neutrophils % 62.8 %; White Blood Count 12.7 K/mcL (4.3-11.1)
[2021-01-30 08:10] LABS: Calcium 8.3 mg/dL (8.6-10.3); Potassium 3.4 mEq/L (3.5-5.1)
[2021-01-30] MEDS: Cholestyramine 4 GM POWD.PACK PO SCH ×2 (08:11→16:13)
[2021-01-30] MEDS: amLODIPine 5 MG TABLET PO SCH (08:11)
[2021-01-30] MEDS: Cholecalciferol (D-3) 1,000 UNIT (25MCG) TABLET PO SCH (08:11)
[2021-01-30] MEDS: Multivit/Ca/Min/Fe/FA 1 TAB TABLET PO SCH (08:11)
[2021-01-30] MEDS: Lactobacillus 1 EACH CAP.SPRINK PO SCH (08:11)
[2021-01-30] MEDS: DilTIAZem CD (24hr) 120 MG CAP.ER.24H PO SCH ×2 (08:11→20:49)
[2021-01-30] MEDS: CALCIUM CARBONATE 750 MG PO SCH (08:12)
[2021-01-30 09:16] LABS: Anisocytosis 1+ (Not Present); Ovalocytes 1+ (Not Present); Platelet Estimate Normal (Normal)
[2021-01-30] MEDS: Ondansetron ODT 4 MG TAB.RAPDIS SL PRN (09:51)
[2021-01-30] MEDS: Melatonin 3 MG TABLET PO PRN (20:50)
[2021-01-30] MEDS: Estrogens, Conjugated CREAM 30 GM TUBE VG SCH (21:03)
[2021-01-31] MEDS: Diphenoxylate/Atropine 1 TAB TABLET PO PRN (02:53)
[2021-01-31 07:31] LABS: Basophils # 0.1 K/mcL (0.0-0.2); Basophils % 0.5 %; Eosinophils # 0.4 K/mcL (0.0-0.6); Eosinophils % 3.2 %; Hematocrit 27.2 % (35.3-44.9); Hemoglobin 8.9 g/dL (11.5-15.4); Immature Granulocytes % 1.2 % (0-4); Lymphocytes # 2.4 K/mcL (0.6-4.6); Lymphocytes % 20.4 %; Mean Corpuscular HGB Conc 32.7 g/dL (31.6-35.5); Mean Corpuscular Hemoglobin 27.7 pg (28.0-33.3); Mean Corpuscular Volume 84.7 fL (83.0-100.0); Mean Platelet Volume 10.1 fL (9.4-12.4); Monocytes % 8.2 %; Neutrophils # 7.8 K/mcL (1.6-8.9); Platelet Count 134 K/mcL (140-400); Red Blood Count 3.21 M/mcL (3.82-4.97); Red Cell Distribution Width 17.1 % (11.5-14.5); Segmented Neutrophils % 66.5 %; White Blood Count 11.7 K/mcL (4.3-11.1)
[2021-01-31] MEDS: Cholestyramine 4 GM POWD.PACK PO SCH ×2 (07:51→18:20)
[2021-01-31 08:10] LABS: Calcium 8.1 mg/dL (8.6-10.3); Potassium 3.2 mEq/L (3.5-5.1)
[2021-01-31] MEDS: Multivit/Ca/Min/Fe/FA 1 TAB TABLET PO SCH (10:23)
[2021-01-31] MEDS: amLODIPine 5 MG TABLET PO SCH (10:23)
[2021-01-31] MEDS: DilTIAZem CD (24hr) 120 MG CAP.ER.24H PO SCH ×2 (10:23→20:21)
[2021-01-31] MEDS: Cholecalciferol (D-3) 1,000 UNIT (25MCG) TABLET PO SCH (10:23)
[2021-01-31] MEDS: Lactobacillus 1 EACH CAP.SPRINK PO SCH (10:23)
[2021-01-31] MEDS: 0.9 % Sodium Chloride 1,000 ML IVC SCH ×2 (10:23→20:26)
[2021-01-31] MEDS: CALCIUM CARBONATE 750 MG PO SCH (10:40)
[2021-01-31] MEDS: Melatonin 3 MG TABLET PO PRN (20:21)
[2021-01-31] MEDS: traZODone 50 MG TABLET PO PRN (20:21)
[2021-01-31] MEDS: Estrogens, Conjugated CREAM 30 GM TUBE VG SCH (20:25)
[2021-02-01] MEDS: Acetaminophen 325 MG TABLET PO PRN ×2 (01:01→12:10)
[2021-02-01] MEDS: 0.9 % Sodium Chloride 1,000 ML IVC SCH (03:19)
[2021-02-01 07:19] LABS: Basophils # 0.1 K/mcL (0.0-0.2); Basophils % 0.8 %; Eosinophils # 0.6 K/mcL (0.0-0.6); Eosinophils % 6.9 %; Hematocrit 26.1 % (35.3-44.9); Hemoglobin 8.5 g/dL (11.5-15.4); Immature Granulocytes % 1.6 % (0-4); Lymphocytes # 2.4 K/mcL (0.6-4.6); Lymphocytes % 29.9 %; Mean Corpuscular HGB Conc 32.6 g/dL (31.6-35.5); Mean Corpuscular Hemoglobin 27.6 pg (28.0-33.3); Mean Corpuscular Volume 84.7 fL (83.0-100.0); Monocytes # 0.8 K/mcL (0.0-1.3); Monocytes % 10.2 %; Platelet Count 168 K/mcL (140-400); Red Blood Count 3.08 M/mcL (3.82-4.97); Red Cell Distribution Width 17.2 % (11.5-14.5); Segmented Neutrophils % 50.6 %; White Blood Count 7.9 K/mcL (4.3-11.1)
[2021-02-01 07:43] LABS: Calcium 7.7 mg/dL (8.6-10.3); Potassium 3.7 mEq/L (3.5-5.1)
[2021-02-01] MEDS: Lactobacillus 1 EACH CAP.SPRINK PO SCH (08:59)
[2021-02-01] MEDS: Cholestyramine 4 GM POWD.PACK PO SCH (08:59)
[2021-02-01] MEDS: Cholecalciferol (D-3) 1,000 UNIT (25MCG) TABLET PO SCH (08:59)
[2021-02-01] MEDS: Multivit/Ca/Min/Fe/FA 1 TAB TABLET PO SCH (08:59)
[2021-02-01] MEDS: amLODIPine 5 MG TABLET PO SCH (09:00)
[2021-02-01] MEDS: DilTIAZem CD (24hr) 120 MG CAP.ER.24H PO SCH ×2 (09:00→21:00)
[2021-02-01] MEDS: CALCIUM CARBONATE 750 MG PO SCH (09:01)
[2021-02-01] MEDS: Diphenoxylate/Atropine 1 TAB TABLET PO PRN (12:15)
[2021-02-01] MEDS ORDERED: *HR* Metoprolol 5 MG/5 ML VIAL IVP ONE (20:17)
[2021-02-01] MEDS: Estrogens, Conjugated CREAM 30 GM TUBE VG SCH (21:00)
[2021-02-02] MEDS: Diphenoxylate/Atropine 1 TAB TABLET PO PRN ×2 (05:09→15:51)
[2021-02-02] MEDS: 0.9 % Sodium Chloride 1,000 ML IVC SCH (07:31)
[2021-02-02] MEDS: DilTIAZem CD (24hr) 120 MG CAP.ER.24H PO SCH ×2 (09:05→21:14)
[2021-02-02] MEDS: Cholecalciferol (D-3) 1,000 UNIT (25MCG) TABLET PO SCH (09:06)
[2021-02-02] MEDS: Multivit/Ca/Min/Fe/FA 1 TAB TABLET PO SCH (09:06)
[2021-02-02] MEDS: Lactobacillus 1 EACH CAP.SPRINK PO SCH (09:06)
[2021-02-02] MEDS: amLODIPine 5 MG TABLET PO SCH (09:06)
[2021-02-02] MEDS: CALCIUM CARBONATE 750 MG PO SCH (09:07)
[2021-02-02] MEDS: Benzonatate 100 MG CAPSULE PO PRN (21:13)
[2021-02-02] MEDS: Acetaminophen 325 MG TABLET PO PRN (21:13)
[2021-02-02] MEDS: Melatonin 3 MG TABLET PO PRN (21:13)
[2021-02-02] MEDS: traZODone 50 MG TABLET PO PRN (21:14)
[2021-02-02] MEDS: Estrogens, Conjugated CREAM 30 GM TUBE VG SCH (21:27)
[2021-02-03] MEDS: Diphenoxylate/Atropine 1 TAB TABLET PO PRN (08:59)
[2021-02-03] MEDS: Lactobacillus 1 EACH CAP.SPRINK PO SCH (09:00)
[2021-02-03] MEDS: Multivit/Ca/Min/Fe/FA 1 TAB TABLET PO SCH (09:01)
[2021-02-03] MEDS: amLODIPine 5 MG TABLET PO SCH (09:01)
[2021-02-03] MEDS: DilTIAZem CD (24hr) 120 MG CAP.ER.24H PO SCH ×2 (09:01→21:55)
[2021-02-03] MEDS: Cholecalciferol (D-3) 1,000 UNIT (25MCG) TABLET PO SCH (09:01)
[2021-02-03] MEDS: CALCIUM CARBONATE 750 MG PO SCH (09:02)
[2021-02-03] MEDS: Ringers Solution, Lactated 1,000 ML IVC SCH ×2 (11:14→23:58)
[2021-02-03] MEDS: Acetaminophen 325 MG TABLET PO PRN (21:54)
[2021-02-03] MEDS: traZODone 50 MG TABLET PO PRN (21:55)
[2021-02-03] MEDS: Benzonatate 100 MG CAPSULE PO PRN (21:55)
[2021-02-03] MEDS: Melatonin 3 MG TABLET PO PRN (21:55)
[2021-02-03] MEDS: Estrogens, Conjugated CREAM 30 GM TUBE VG SCH (21:56)
[2021-02-04] MEDS ORDERED: Furosemide 20 MG/2 ML VIAL IVP ONE (02:32)
[2021-02-04 08:34] LABS: Basophils # 0.1 K/mcL (0.0-0.2); Basophils % 0.6 %; Eosinophils # 0.9 K/mcL (0.0-0.6); Eosinophils % 8.2 %; Hemoglobin 9.3 g/dL (11.5-15.4); Lymphocytes # 2.6 K/mcL (0.6-4.6); Lymphocytes % 23.5 %; Mean Corpuscular HGB Conc 33.2 g/dL (31.6-35.5); Mean Corpuscular Hemoglobin 27.8 pg (28.0-33.3); Mean Corpuscular Volume 83.6 fL (83.0-100.0); Mean Platelet Volume 10.8 fL (9.4-12.4); Monocytes # 1.2 K/mcL (0.0-1.3); Monocytes % 10.7 %; Neutrophils # 6.1 K/mcL (1.6-8.9); Platelet Count 197 K/mcL (140-400); Red Blood Count 3.35 M/mcL (3.82-4.97); Red Cell Distribution Width 17.6 % (11.5-14.5); White Blood Count 10.9 K/mcL (4.3-11.1)
[2021-02-04 08:46] LABS: Calcium 8.2 mg/dL (8.6-10.3)
[2021-02-04] MEDS: amLODIPine 5 MG TABLET PO SCH (09:05)
[2021-02-04] MEDS: Lactobacillus 1 EACH CAP.SPRINK PO SCH (09:06)
[2021-02-04] MEDS: Multivit/Ca/Min/Fe/FA 1 TAB TABLET PO SCH (09:06)
[2021-02-04] MEDS: DilTIAZem CD (24hr) 120 MG CAP.ER.24H PO SCH ×2 (09:06→20:15)
[2021-02-04] MEDS: CALCIUM CARBONATE 750 MG PO SCH (09:07)
[2021-02-04] MEDS: Cholecalciferol (D-3) 1,000 UNIT (25MCG) TABLET PO SCH (09:07)
[2021-02-04] MEDS ORDERED: Potassium Chloride Elixir 20 MEQ/15 ML UDC PO ONE (12:34)
[2021-02-04] MEDS: Acetaminophen 325 MG TABLET PO PRN (13:25)
[2021-02-04] MEDS: Benzonatate 100 MG CAPSULE PO PRN (20:16)
[2021-02-04] MEDS: Estrogens, Conjugated CREAM 30 GM TUBE VG SCH (20:16)
[2021-02-04] MEDS: traZODone 50 MG TABLET PO PRN (22:45)
[2021-02-04] MEDS: Melatonin 3 MG TABLET PO PRN (22:45)
[2021-02-04] MEDS: Diphenoxylate/Atropine 1 TAB TABLET PO PRN (22:48)
[2021-02-05 07:01] LABS: Basophils # 0.1 K/mcL (0.0-0.2); Basophils % 0.7 %; Eosinophils # 0.7 K/mcL (0.0-0.6); Eosinophils % 7.2 %; Hematocrit 26.6 % (35.3-44.9); Hemoglobin 8.9 g/dL (11.5-15.4); Immature Granulocytes % 1.4 % (0-4); Lymphocytes # 2.5 K/mcL (0.6-4.6); Mean Corpuscular HGB Conc 33.5 g/dL (31.6-35.5); Mean Corpuscular Hemoglobin 27.8 pg (28.0-33.3); Mean Corpuscular Volume 83.1 fL (83.0-100.0); Mean Platelet Volume 10.5 fL (9.4-12.4); Monocytes # 1.1 K/mcL (0.0-1.3); Monocytes % 12.1 %; Neutrophils # 4.6 K/mcL (1.6-8.9); Platelet Count 217 K/mcL (140-400); Red Cell Distribution Width 17.8 % (11.5-14.5); Segmented Neutrophils % 50.6 %; White Blood Count 9.1 K/mcL (4.3-11.1)
[2021-02-05 07:21] LABS: Calcium 7.9 mg/dL (8.6-10.3); Magnesium 1.5 mg/dL (1.6-2.6); Potassium 3.3 mEq/L (3.5-5.1)
[2021-02-05 08:31] VITALS: BP 149/69; PULSE 114; RESP 22; TEMP 97.7; O2SAT 93
[2021-02-05] MEDS: CALCIUM CARBONATE 750 MG PO SCH (08:34)
[2021-02-05] MEDS: amLODIPine 5 MG TABLET PO SCH (08:34)
[2021-02-05] MEDS: Lactobacillus 1 EACH CAP.SPRINK PO SCH (08:34)
[2021-02-05] MEDS: DilTIAZem CD (24hr) 120 MG CAP.ER.24H PO SCH (08:34)
[2021-02-05] MEDS: Multivit/Ca/Min/Fe/FA 1 TAB TABLET PO SCH (08:34)
[2021-02-05] MEDS: Cholecalciferol (D-3) 1,000 UNIT (25MCG) TABLET PO SCH (08:34)
[2021-02-05] MEDS ORDERED: Furosemide 20 MG/2 ML VIAL IVP ONE (10:06)
[2021-02-05 11:57] LABS: Bilirubin,Urine Negative (Negative); Blood,Urine Moderate (Negative); Clarity,Urine Cloudy (Clear); Glucose,Urine (UA) Normal (Normal); Ketones,Urine Negative (Negative); Leukocyte Esterase,Urine Small (Negative); Nitrite,Urine Negative (Negative); PH,Urine 5.5 pH Units (5.0-8.0); Protein,Urine 100 mg/dL (Neg-Trace); Specific Gravity,Urine 1.015 (1.010-1.025); Urobilinogen,Urine Normal (Normal)
[2021-02-05 12:14] LABS: Color,Urine LIGHT YELLOW (Yellow)
[2021-02-05 12:17] LABS: Bacteria,Urine Few per hpf (None-Few); Squamous Epithelial Cell,Urine Few per hpf (None-Few); WBC,Urine TNTC per hpf (0-3)
[2021-02-06 06:32] LABS: Pancreatic Elastase, Fecal 82 ug/g (>=100)
== END 2021-02-05 15:45 | disposition short-term general hospital (02) | DRG 189 ==
LOC: INPPIK 01-12 19:59
PROVIDERS: ADMIT Internal Medicine; ATTEND Internal Medicine

== ENCOUNTER 2021-02-11 14:01 | Inpatient (IN) ==
[2021-02-11] MEDS ORDERED: Ketoconazole 2% CRM 15 GM TUBE TP PRN (15:27)
[2021-02-11] MEDS: DilTIAZem CD (24hr) 120 MG CAP.ER.24H PO SCH (21:14)
[2021-02-11] MEDS: ESTRADIOL APPL VG SCH (21:14)
[2021-02-11] MEDS: Acetaminophen 325 MG TABLET PO PRN (21:17)
[2021-02-11] MEDS ORDERED: Chloraseptic Spray 177 ML BOTTLE MM PRN (21:41)
[2021-02-12] MEDS: Acetaminophen 325 MG TABLET PO PRN ×3 (05:31→20:36)
[2021-02-12 07:31] LABS: Basophils # 0.1 K/mcL (0.0-0.2); Basophils % 0.8 %; Eosinophils # 0.4 K/mcL (0.0-0.6); Eosinophils % 5.3 %; Hematocrit 27.7 % (35.3-44.9); Hemoglobin 8.8 g/dL (11.5-15.4); Immature Granulocytes % 0.8 % (0-4); Lymphocytes # 2.1 K/mcL (0.6-4.6); Lymphocytes % 26.6 %; Mean Corpuscular HGB Conc 31.8 g/dL (31.6-35.5); Mean Corpuscular Hemoglobin 27.4 pg (28.0-33.3); Mean Corpuscular Volume 86.3 fL (83.0-100.0); Mean Platelet Volume 12.1 fL (9.4-12.4); Monocytes % 13.4 %; Neutrophils # 4.2 K/mcL (1.6-8.9); Platelet Count 121 K/mcL (140-400); Red Blood Count 3.21 M/mcL (3.82-4.97); Red Cell Distribution Width 18.6 % (11.5-14.5); Segmented Neutrophils % 53.1 %; White Blood Count 7.8 K/mcL (4.3-11.1)
[2021-02-12 07:55] LABS: Calcium 8.1 mg/dL (8.6-10.3); Potassium 3.9 mEq/L (3.5-5.1)
[2021-02-12] MEDS: amLODIPine 5 MG TABLET PO SCH (09:59)
[2021-02-12] MEDS: Multivit/Ca/Min/Fe/FA 1 TAB TABLET PO SCH (09:59)
[2021-02-12] MEDS: DilTIAZem CD (24hr) 120 MG CAP.ER.24H PO SCH ×2 (09:59→20:33)
[2021-02-12] MEDS: Cholecalciferol (D-3) 1,000 UNIT (25MCG) TABLET PO SCH (09:59)
[2021-02-12] MEDS: Melatonin 3 MG TABLET PO PRN (20:36)
[2021-02-12] MEDS: ESTRADIOL APPL VG SCH (20:54)
[2021-02-13] MEDS: amLODIPine 5 MG TABLET PO SCH (07:52)
[2021-02-13] MEDS: Multivit/Ca/Min/Fe/FA 1 TAB TABLET PO SCH (07:52)
[2021-02-13] MEDS: Cholecalciferol (D-3) 1,000 UNIT (25MCG) TABLET PO SCH (07:52)
[2021-02-13] MEDS: DilTIAZem CD (24hr) 120 MG CAP.ER.24H PO SCH ×2 (07:52→19:50)
[2021-02-13 18:54] VITALS: RESP 18
[2021-02-13] MEDS: Acetaminophen 325 MG TABLET PO PRN (19:51)
[2021-02-13] MEDS: Melatonin 3 MG TABLET PO PRN (19:51)
[2021-02-13] MEDS: ESTRADIOL APPL VG SCH (21:47)
[2021-02-14 09:02] LABS: Basophils # 0.1 K/mcL (0.0-0.2); Basophils % 0.9 %; Eosinophils # 0.4 K/mcL (0.0-0.6); Eosinophils % 4.4 %; Hematocrit 30.6 % (35.3-44.9); Hemoglobin 9.6 g/dL (11.5-15.4); Immature Granulocytes % 1.1 % (0-4); Lymphocytes % 29.7 %; Mean Corpuscular HGB Conc 31.4 g/dL (31.6-35.5); Mean Corpuscular Hemoglobin 27.3 pg (28.0-33.3); Mean Corpuscular Volume 86.9 fL (83.0-100.0); Mean Platelet Volume 12.6 fL (9.4-12.4); Monocytes % 10.4 %; Neutrophils # 5.4 K/mcL (1.6-8.9); Platelet Count 148 K/mcL (140-400); Red Blood Count 3.52 M/mcL (3.82-4.97); Red Cell Distribution Width 19.3 % (11.5-14.5); Segmented Neutrophils % 53.5 %
[2021-02-14 09:23] LABS: Calcium 8.2 mg/dL (8.6-10.3); Potassium 4.1 mEq/L (3.5-5.1)
[2021-02-14] MEDS: DilTIAZem CD (24hr) 120 MG CAP.ER.24H PO SCH ×2 (09:33→21:21)
[2021-02-14] MEDS: Cholecalciferol (D-3) 1,000 UNIT (25MCG) TABLET PO SCH (09:35)
[2021-02-14] MEDS: Multivit/Ca/Min/Fe/FA 1 TAB TABLET PO SCH (09:35)
[2021-02-14] MEDS: amLODIPine 5 MG TABLET PO SCH (09:37)
[2021-02-14] MEDS: ESTRADIOL APPL VG SCH (20:18)
[2021-02-14] MEDS: Melatonin 3 MG TABLET PO PRN (21:30)
[2021-02-14] MEDS: Acetaminophen 325 MG TABLET PO PRN (21:30)
[2021-02-15 06:49] VITALS: BP 157/61; PULSE 94; TEMP 98; O2SAT 96
[2021-02-15] MEDS: Multivit/Ca/Min/Fe/FA 1 TAB TABLET PO SCH (08:52)
[2021-02-15] MEDS: Cholecalciferol (D-3) 1,000 UNIT (25MCG) TABLET PO SCH (08:53)
[2021-02-15] MEDS: DilTIAZem CD (24hr) 120 MG CAP.ER.24H PO SCH (08:53)
[2021-02-15] MEDS: amLODIPine 5 MG TABLET PO SCH (08:54)
[2021-02-15] MEDS: Acetaminophen 325 MG TABLET PO PRN (13:15)
== END 2021-02-15 18:48 | disposition home health service (06) | DRG 392 ==
LOC: INPPIK 19:46
PROVIDERS: ADMIT Internal Medicine; ATTEND Internal Medicine